=== PATIENT | male | born 2000 | race Caucasian/White ===

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

== ENCOUNTER → 2018-04-20 | Outpatient (REF) | payer OTHER, MEDICAID ==
[2018-04-20 23:51] LABS: CHLAMYDIA DNA AMPLIFICATION NEGATIVE (NEGATIVE); GC DNA AMPLIFICATION NEGATIVE (NEGATIVE)
== END ==
LOC: M LAB REF 19:05
DX: Z20.2 Contact with and (suspected) exposure to infections with a predominantly sexual mode of transmission (principal)

== ENCOUNTER 2018-05-07 17:15 | Emergency (ER) | payer OTHER, MEDICAID | END 2018-05-07 18:39 | disposition home or self-care (01) | LOC: M ED 17:15 | DX: S86.891A Other injury of other muscle(s) and tendon(s) at lower leg level, right leg, initial encounter (principal); Y93.02 Activity, running | CPT/HCPCS: 73590 ==

== ENCOUNTER 2018-05-08 13:55 | Emergency (ER) | payer OTHER | END 2018-05-08 16:00 | disposition home or self-care (01) | LOC: M ED 13:55 | DX: F41.9 Anxiety disorder, unspecified (principal); Z79.899 Other long term (current) drug therapy | CPT/HCPCS: 99283 ==

== ENCOUNTER 2018-05-08 21:11 | Emergency (ER) | payer OTHER ==
[2018-05-08] MEDS: ALPRAZolam 0.5 MG TAB PO (23:14)
== END 2018-05-08 23:18 | disposition home or self-care (01) ==
LOC: M ED 21:11
DX: F41.9 Anxiety disorder, unspecified (principal); Z79.899 Other long term (current) drug therapy
CPT/HCPCS: 99283

== ENCOUNTER 2018-06-06 22:34 | Emergency (ER) | payer OTHER ==
[2018-06-06] MEDS: LORazepam 1 MG TAB PO (23:40)
== END 2018-06-07 | disposition home or self-care (01) ==
LOC: M ED 06-07
DX: F41.1 Generalized anxiety disorder (principal)
CPT/HCPCS: 99283

== ENCOUNTER 2018-07-03 14:34 | Emergency (ER) | payer OTHER | END 2018-07-03 16:21 | disposition home or self-care (01) | LOC: M ED 14:34 | DX: M62.838 Other muscle spasm (principal); S29.012A Strain of muscle and tendon of back wall of thorax, initial encounter; X50.9XXA Other and unspecified overexertion or strenuous movements or postures, initial encounter; Y93.H1 Activity, digging, shoveling and raking; Y92.89 Other specified places as the place of occurrence of the external cause | CPT/HCPCS: 99283 ==

== ENCOUNTER 2018-07-12 17:17 | Emergency (ER) | payer OTHER | END 2018-07-12 18:29 | disposition home or self-care (01) | LOC: M ED 17:17 | DX: S86.891A Other injury of other muscle(s) and tendon(s) at lower leg level, right leg, initial encounter (principal); S86.892A Other injury of other muscle(s) and tendon(s) at lower leg level, left leg, initial encounter; X58.XXXA Exposure to other specified factors, initial encounter; Y92.39 Other specified sports and athletic area as the place of occurrence of the external cause; Y93.02 Activity, running; Y99.9 Unspecified external cause status; F41.9 Anxiety disorder, unspecified; J45.909 Unspecified asthma, uncomplicated; D55.0 Anemia due to glucose-6-phosphate dehydrogenase [G6PD] deficiency | CPT/HCPCS: 73590 ==

== ENCOUNTER 2018-08-09 18:50 | Emergency (ER) | payer OTHER ==
[~2018-08-09] VITALS: Ht 175.3 cm; Wt 68.2 kg
[~2018-08-09 18:50] MED LIST: ATIV1TAB7 PO; CYCL10TA PO; IBUP-1022 PO; KETO10TAB PO; NAPR-50 PO; VENL75TA2 PO
[2018-08-09] MEDS ORDERED: ALPRAZolam 0.25 MG TAB PO ONE (20:00)
[2018-08-09] MEDS ORDERED: HYDR-3363 PO (20:02)
[2018-08-09 20:15] VITALS: BP 120/71
== END 2018-08-09 20:16 | disposition home or self-care (01) ==
LOC: M ED 18:50
DX: F43.0 Acute stress reaction (principal); F41.1 Generalized anxiety disorder

== ENCOUNTER 2018-09-20 20:34 | Emergency (ER) | payer OTHER ==
[~2018-09-20] VITALS: Ht 175.3 cm; Wt 68.2 kg
[~2018-09-20 20:34] MED LIST changes: +HYDR-3363 PO
[2018-09-20] MEDS ORDERED: IBUP-1022 PO (22:22)
[2018-09-20 22:30] VITALS: BP 120/56
[2018-09-20] MEDS ORDERED: IBUPROFEN 600 MG TAB PO ONE (22:30)
== END 2018-09-20 22:37 | disposition home or self-care (01) ==
LOC: M ED 20:34
DX: S86.891A Other injury of other muscle(s) and tendon(s) at lower leg level, right leg, initial encounter (principal); X58.XXXA Exposure to other specified factors, initial encounter; Y92.89 Other specified places as the place of occurrence of the external cause; Y93.02 Activity, running

== ENCOUNTER 2018-10-03 21:07 | Emergency (ER) | payer OTHER ==
[~2018-10-03] VITALS: Ht 175.3 cm; Wt 68.2 kg
[2018-10-03 21:08] VITALS: BP 124/64
[2018-10-03] MEDS ORDERED: NAPR-50 PO (21:56)
[2018-10-03] MEDS ORDERED: NAPROXEN 250 MG TAB PO ONE (22:00)
== END 2018-10-03 22:04 | disposition home or self-care (01) ==
LOC: M ED 21:07
DX: M76.811 Anterior tibial syndrome, right leg (principal); M76.812 Anterior tibial syndrome, left leg; J45.909 Unspecified asthma, uncomplicated

== ENCOUNTER 2018-10-21 16:59 | Emergency (ER) | payer OTHER ==
[~2018-10-21] VITALS: Ht 175.3 cm; Wt 70.1 kg
[~2018-10-21 16:59] MED LIST changes: -NAPR-50 PO; +NAPR-837 PO
[2018-10-21 18:39] LABS: INFLUENZA A AMPLIFICATION POSITIVE (NEGATIVE); INFLUENZA B AMPLIFICATION NEGATIVE (NEGATIVE)
[2018-10-21 19:02] LABS: BLOOD UREA NITROGEN 28 MG/DL (7-18); CARBON DIOXIDE LEVEL 32 MEQ/L (21-32); CHLORIDE LEVEL 100 MEQ/L (98-107); CK-MB VALUE MASS < 1.0 NG/ML (<3.6); CPK CREATINE PHOSPHOKINASE 127 U/L (39-308); CREATININE FOR GFR 1.31 MG/DL (0.70-1.30); GLUCOSE, FASTING 78 MG/DL (70-100); MB/CK RELATIVE INDEX 0.79 (< OR =4); POTASSIUM SERUM 4.7 MEQ/L (3.5-5.1); SODIUM LEVEL 140 MEQ/L (136-145); TROPONIN I < 0.02 NG/ML (< 0.10)
[2018-10-21 19:12] LABS: BASO % 0.3 % (0.0-1.0); EOS # 0.2 10^3/uL (0.0-0.50); EOS % 3.3 % (0.0-3.0); HEMATOCRIT 49.6 % (42.0-52.0); HEMOGLOBIN 16.9 g/dl (13.5-17.5); LYMPH % 28.9 % (24.0-44.0); MEAN CORPUSCULAR HEMOGLOBIN 30.2 pg (27.0-33.0); MEAN CORPUSCULAR HGB CONC 34.1 g/dl (32.0-36.5); MEAN CORPUSCULAR VOLUME 88.7 fl (80.0-96.0); MONO # 1.4 10^3/uL (0.0-0.8); MONO % 20.5 % (0.0-5.0); NEUTROPHILS # 3.2 10^3/uL (1.8-7.7); NEUTROPHILS % 46.9 % (36.0-66.0); PLATELET COUNT, AUTOMATED 208 10^3/uL (150-450); RED BLOOD COUNT 5.59 10^6/uL (4.30-6.10); WHITE BLOOD COUNT 6.7 10^3/uL (4.0-10.0)
[2018-10-21] MEDS ORDERED: NS 1,000 ML IV ONE (19:45)
[2018-10-21 20:05] VITALS: BP 116/63
--- NOTE | 2018-10-22 09:30 | ECGEPIP ---
Stationary ECG Study [facility] - ED Test Date: 2018-10-21 Pat Name: MAIN BLACK Department: Room: - Gender: M Van Helper: [facility] : 2000 Requested By: JJ Swain PA-C Order Number: [id number] Reading MD: Yecenia Amador Measurements Intervals [place] Rate: 51 P: -7 DE: 144 QRS: 80 QRSD: 102 T: 51 QT: 364 QTc: 338 Interpretive Statements SINUS BRADYCARDIA POSSIBLE LEFT VENTRICULAR HYPERTROPHY TALL T-WAVES, HYPERKALEMIA, EARLY REPOLARIZATION, CLINICAL CORRELATION DECREASED RATE 05/06/15 Electronically Signed On 10-22-2018 9:30:22 EDT by Yecenia Amador
== END 2018-10-21 20:02 | disposition home or self-care (01) ==
LOC: M ED 16:59
DX: H92.03 Otalgia, bilateral (principal); J09.X9 Influenza due to identified novel influenza A virus with other manifestations; E86.0 Dehydration; R94.31 Abnormal electrocardiogram [ECG] [EKG]; J45.909 Unspecified asthma, uncomplicated; Z87.09 Personal history of other diseases of the respiratory system

== ENCOUNTER 2018-12-05 15:26 | Emergency (ER) | payer OTHER ==
[~2018-12-05] VITALS: Ht 177.8 cm; Wt 70.5 kg
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
[2018-12-05 18:32] VITALS: BP 107/61
--- NOTE | 2018-12-13 15:11 | REP ---
HISTORY: Chronic shoulder pain. There is no acute fracture or dislocation. The joint spaces are normal in appearance. IMPRESSION:There is no acute fracture or dislocation. Electronically Signed by Mich Pina MD 12/05/2018 06:44 P
== END 2018-12-05 18:34 | disposition home or self-care (01) ==
LOC: M ED 15:26
DX: S86.891A Other injury of other muscle(s) and tendon(s) at lower leg level, right leg, initial encounter (principal); S86.892A Other injury of other muscle(s) and tendon(s) at lower leg level, left leg, initial encounter; M25.512 Pain in left shoulder; M79.18 Myalgia, other site; X58.XXXA Exposure to other specified factors, initial encounter; Y92.89 Other specified places as the place of occurrence of the external cause; D55.0 Anemia due to glucose-6-phosphate dehydrogenase [G6PD] deficiency; M54.5 Low back pain; F41.9 Anxiety disorder, unspecified

== ENCOUNTER 2019-03-10 18:18 | Emergency (ER) | payer OTHER ==
[~2019-03-10] VITALS: Ht 175.3 cm; Wt 72.7 kg
[2019-03-10] MEDS ORDERED: KETOROLAC TROMETHAMINE 10 MG TAB PO ONE (22:15)
[2019-03-10 22:46] VITALS: BP 138/68
[2019-03-10] MEDS ORDERED: KETO10TAB PO (23:43)
[2019-03-10] MEDS ORDERED: CYCL5TAB PO (23:43)
== END 2019-03-10 23:56 | disposition home or self-care (01) ==
LOC: M ED 18:18
DX: G89.29 Other chronic pain (principal); M54.5 Low back pain; J45.909 Unspecified asthma, uncomplicated; D55.0 Anemia due to glucose-6-phosphate dehydrogenase [G6PD] deficiency

== ENCOUNTER 2019-04-07 15:06 | Emergency (ER) | payer OTHER ==
[~2019-04-07] VITALS: Ht 175.3 cm; Wt 75.4 kg
[~2019-04-07 15:06] MED LIST changes: +CYCL5TAB PO
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
[2019-04-07] MEDS ORDERED: IBUP-1022 PO (17:10)
[2019-04-07 17:15] VITALS: BP 133/66
== END 2019-04-07 17:15 | disposition home or self-care (01) ==
LOC: M ED 15:06
DX: S80.01XA Contusion of right knee, initial encounter (principal); V89.1XXA Person injured in unspecified nonmotor-vehicle accident, nontraffic, initial encounter

== ENCOUNTER 2019-08-07 18:11 | Emergency (ER) | payer OTHER ==
[~2019-08-07] VITALS: Ht 175.3 cm; Wt 68.8 kg
[2019-08-07] MEDS ORDERED: XANA0.5T PO (19:09)
[2019-08-07 20:47] LABS: AMPHETAMINES LEVEL URINE POSITIVE (NEGATIVE); BARBITURATES URINE NEGATIVE (NEGATIVE); BENZODIAZEPINES URINE NEGATIVE (NEGATIVE); CANNABINOIDS URINE NEGATIVE (NEGATIVE); COCAINE METABOLITE URINE NEGATIVE (NEGATIVE); METHADONE URINE NEGATIVE (NEGATIVE); OPIATES URINE POSITIVE (NEGATIVE); PHENCYCLIDINE URINE NEGATIVE (NEGATIVE)
[2019-08-07 21:37] LABS: BASO % 0.4 % (0.0-1.0); EOS % 0.4 % (0.0-3.0); HEMATOCRIT 46.7 % (42.0-52.0); HEMOGLOBIN 15.1 g/dl (13.5-17.5); LYMPH # 2.1 10^3/uL (1.5-5.0); LYMPH % 24.9 % (24.0-44.0); MEAN CORPUSCULAR HEMOGLOBIN 28.9 pg (27.0-33.0); MEAN CORPUSCULAR HGB CONC 32.3 g/dl (32.0-36.5); MEAN CORPUSCULAR VOLUME 89.3 fl (80.0-96.0); MONO # 0.6 10^3/uL (0.0-0.8); MONO % 7.3 % (0.0-5.0); NEUTROPHILS # 5.7 10^3/uL (1.5-8.5); NEUTROPHILS % 66.8 % (36.0-66.0); PLATELET COUNT, AUTOMATED 294 10^3/uL (150-450); RED BLOOD COUNT 5.23 10^6/uL (4.30-6.10); WHITE BLOOD COUNT 8.5 10^3/uL (4.0-10.0)
[2019-08-07 21:53] LABS: CK-MB VALUE MASS 1.6 NG/ML (<3.6); CPK CREATINE PHOSPHOKINASE 185 U/L (39-308); MB/CK RELATIVE INDEX 0.86 (< OR =4); TROPONIN I < 0.02 NG/ML (< 0.10)
[2019-08-07 21:59] VITALS: BP 125/74
--- NOTE | 2019-08-14 10:13 | ECGEPIP ---
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
== END 2019-08-07 22:22 | disposition home or self-care (01) ==
LOC: M ED 18:11
DX: F11.10 Opioid abuse, uncomplicated (principal); F15.90 Other stimulant use, unspecified, uncomplicated

== ENCOUNTER 2020-08-03 15:28 | Emergency (ER) | payer OTHER ==
[~2020-08-03] VITALS: Ht 177.8 cm; Wt 75.0 kg
[~2020-08-03 15:28] MED LIST changes: +CYCL-707 PO; -CYCL10TA PO; +XANA0.5T PO
[2020-08-03 15:37] VITALS: BP 156/106
[2020-08-03 16:04] LABS: HEMATOCRIT 44.5 % (42.0-52.0); HEMOGLOBIN 14.6 g/dl (13.5-17.5); MEAN CORPUSCULAR HGB CONC 32.8 g/dl (32.0-36.5); MEAN CORPUSCULAR VOLUME 88.3 fl (80.0-96.0); PLATELET COUNT, AUTOMATED 227 10^3/uL (150-450); RED BLOOD COUNT 5.04 10^6/uL (4.30-6.10); WHITE BLOOD COUNT 7.9 10^3/uL (4.0-10.0)
[2020-08-03 16:42] LABS: ACETAMINOPHEN LEVEL < 2.0 UG/ML (10.0-30.0); ALBUMIN 4.8 GM/DL (3.2-5.2); ALT/SGPT 30 U/L (12-78); BILIRUBIN,DIRECT 0.1 MG/DL (0.0-0.2); BILIRUBIN,TOTAL 0.6 MG/DL (0.2-1.0); BLOOD UREA NITROGEN 17 MG/DL (7-18); CALCIUM LEVEL 9.1 MG/DL (8.5-10.1); CARBON DIOXIDE LEVEL 29 MEQ/L (21-32); CHLORIDE LEVEL 105 MEQ/L (98-107); CREATININE FOR GFR 1.05 MG/DL (0.70-1.30); ETHYL ALCOHOL (ETHANOL) < 0.003 % (0.000-0.010); GLOMERULAR FILTRATION RATE > 60.0 (>60); GLUCOSE, FASTING 67 MG/DL (70-100); POTASSIUM SERUM 4.3 MEQ/L (3.5-5.1); SALICYLATE LEVEL < 1.7 MG/DL (5.0-30.0); SODIUM LEVEL 139 MEQ/L (136-145); TOTAL PROTEIN 7.6 GM/DL (6.4-8.2)
== END 2020-08-03 17:02 | disposition home or self-care (01) ==
LOC: M ED 15:28
DX: F43.0 Acute stress reaction (principal); F99 Mental disorder, not otherwise specified; D55.0 Anemia due to glucose-6-phosphate dehydrogenase [G6PD] deficiency; F17.200 Nicotine dependence, unspecified, uncomplicated; Z79.899 Other long term (current) drug therapy
CPT/HCPCS: 36415; 80048; 80076; 84443; 85027; 99284; G0480

== ENCOUNTER 2020-08-29 14:08 | Emergency (ER) | payer OTHER ==
[~2020-08-29] VITALS: Ht 177.8 cm; Wt 79.1 kg
[~2020-08-29 14:08] MED LIST changes: +cloNIDine HCL 0.3 MG/24 HR PATCH TOP SCH
[2020-08-29 14:09] VITALS: BP 118/70
--- OUTSIDE RECORDS SUMMARY | 2020-08-29 14:26 | CCD ---
Author Author [facility] Address Unknown Phone Unavailable Care Team Providers Care Percher Name Role Phone Rose Ng MD Unavailable Unavailable Rose Ng MD Unavailable Unavailable Rose Ng MD Unavailable Unavailable Rose Ng MD Unavailable Unavailable Rose Ng MD Unavailable Unavailable Rose Ng MD Unavailable Unavailable Rose Ng MD Unavailable Unavailable Rose Ng MD Unavailable Unavailable Rose Ng MD Unavailable Unavailable Rose Ng MD Unavailable Unavailable Rose Ng MD Unavailable Unavailable Rose Ng MD Unavailable Unavailable Rose Ng MD Unavailable Unavailable Rose Ng MD Unavailable Unavailable Rose Ng MD Unavailable Unavailable Rose Ng MD Unavailable Unavailable Rose Ng MD Unavailable Unavailable Rose Ng MD Unavailable Unavailable Rose Ng MD Unavailable Unavailable Rose Ng MD Unavailable Unavailable Rose Ng MD Unavailable Unavailable Rose Ng MD Unavailable Unavailable Rose Ng MD Unavailable Unavailable Rose Ng MD Unavailable Unavailable Rose Ng MD Unavailable Unavailable Rose Ng MD Unavailable Unavailable Rose Ng MD Unavailable Unavailable Rose Ng MD Unavailable Unavailable Rose Ng MD Unavailable Unavailable Gn, oRse Moe MD Unavailable Unavailable Ng, Rose Moe MD Unavailable Unavailable Ng, Rose Moe MD Unavailable Unavailable Ng, Rose Moe MD Unavailable Unavailable Ng, Rose Moe MD Unavailable Unavailable Ng, Rose Moe MD Unavailable Unavailable Ng, Rose Moe MD Unavailable Unavailable Ng, Rose Moe MD Unavailable Unavailable Ng, Rose Moe MD Unavailable Unavailable Ng, Rose Moe MD Unavailable Unavailable Ng, Rose Moe MD Unavailable Unavailable Ng, Rose Moe MD Unavailable Unavailable Ng, Rose Moe MD Unavailable Unavailable Ng, Rose Moe MD Unavailable Unavailable Ng, Rose Moe MD Unavailable Unavailable Ng, Rose Moe MD Unavailable Unavailable Ng, Rose Moe MD Unavailable Unavailable Ng, Rose Moe MD Unavailable Unavailable Ng, Rose Moe MD Unavailable Unavailable Ng, Rose Moe MD Unavailable Unavailable Ng, Rose Moe MD Unavailable Unavailable Ng, Rose Moe MD Unavailable Unavailable Ng, Rose Moe MD Unavailable Unavailable Ng, Rose Moe MD Unavailable Unavailable Ng, Rose Moe MD Unavailable Unavailable Ng, Rose Moe MD Unavailable Unavailable Ng, Rose Moe MD Unavailable Unavailable Ng, Rose Moe MD Unavailable Unavailable Ng, Rose Moe MD Unavailable Unavailable Ng, Rose Moe MD Unavailable Unavailable Ng, Rose Moe MD Unavailable Unavailable Ng, Rose Moe MD Unavailable Unavailable NgRose MD Unavailable Unavailable Ng, Rose Moe MD Unavailable Unavailable Gn, Rose Moe MD Unavailable Unavailable NgRose MD Unavailable Unavailable Ng, Rose Moe MD Unavailable Unavailable Ng, Rose Moe MD Unavailable Unavailable Ng, Rose Moe MD Unavailable Unavailable Ng, Rose Moe MD Unavailable Unavailable Ng, Rose Moe MD Unavailable Unavailable Ng, Rose Moe MD Unavailable Unavailable Ng, Rose Moe MD Unavailable Unavailable Ng, Rose Moe MD Unavailable Unavailable NgRose MD Unavailable Unavailable NgRose MD Unavailable Unavailable NgRose MD Unavailable Unavailable NgRose MD Unavailable Unavailable Ng, Rose Moe MD Unavailable Unavailable Ng, Rose Moe MD Unavailable Unavailable NgRose MD Unavailable Unavailable NgRose MD Unavailable Unavailable NgRose MD Unavailable Unavailable NgRose MD Unavailable Unavailable Rose Ng MD Unavailable Unavailable NgRose MD Unavailable Unavailable NgRose MD Unavailable Unavailable NgRose MD Unavailable Unavailable NgRose MD Unavailable Unavailable NgRose MD Unavailable Unavailable Re-disclosure Warning The records that you are about to access may contain information from federally-assisted alcohol or drug abuse programs. If such information is present, then the following federally mandated warning applies: This information has been disclosed to you from records protected by federal confidentiality rules (42 CFR part 2). The federal rules prohibit you from making any further disclosure of this information unless further disclosure is expressly permitted by the written consent of the person to whom it pertains or as otherwise permitted by 42 CFR part 2. A general authorization for the release of medical or other information is NOT sufficient for this purpose. The Federal rules restrict any use of the information to criminally investigate or prosecute any alcohol or drug abuse patient.The records that you are about to access may contain highly sensitive health information, the redisclosure of which is protected by Article 27-F of the [facility] Public Health law. If you continue you may have access to information: Regarding HIV / AIDS; Provided by facilities licensed or operated by the [facility] Office of Mental Health; or Provided by the [facility] Office for People With Developmental Disabilities. If such information is present, then the following [facility] mandated warning applies: This information has been disclosed to you from confidential records which are protected by state law. State law prohibits you from making any further disclosure of this information without the specific written consent of the person to whom it pertains, or as otherwise permitted by law. Any unauthorized further disclosure in violation of state law may result in a fine or group home sentence or both. A general authorization for the release of medical or other information is NOT sufficient authorization for further disc losure. Family History Family Member Name Family Member Gender Family Member Status Date o f Status Description Data Source(s) Unknown Male Problem [facility] ([facility]) Encounters Encounter Providers Location Date Indications Data Source(s ) Outpatient Attender: Abhi Ng MD FP 08/09/2019 08:52:01 AM [facility] Outpatient Attender: Abhi Ng MD FP 07/24/2019 09:01:14 PM [facility] Family Health Insurance Providers Payer name Policy type / Coverage type Policy ID Covered green party ID Covered green party's relationship to quintero Policy Qu[employer] Plan Information [employer] COMMUNITY PLAN MCDHMO [id number] SP [id number] Managed Care - [facility] Community Plan P [id number] S [id number] Medicaid S [id number] S [id number] [facility]) O [id number] S [id number] [facility] Community Plan Commercial [id number] Self [id number] Managed Care - Community Plan [employer] P [id number] S [id number] Managed Care - Community Plan United Healthcare P [id number] S [id number] UNHC COMMUNITY PLAN XIX -RECURRING [id number] 18 [id number] [facility] COMMUNITY PLAN [facility] [id number] SP [id number] MEDICAID [id number] SP [id number] Medicaid S [id number] S [id number] Self Pay P UNAVAILABLE S UNAVAILA BLE SELF PAY ONLY UNAVAILABLE SP UNAV AILABLE [facility] COMMUNITY PLAN [facility] [id number] SP [id number] [facility] COMMUNITY PLAN [facility] [id number] SP [id number] [facility] COMMUNITY PLAN [facility] [id number] SP [id number] [facility] PLAN [facility] [id number] SP [id number] [facility](MCAID) O [id number] S [id number] [facility]) O [id number] S [id number] [facility] AMERICHOICE XIX -HMO [id number] 18 [id number] MEDICAID - CLINIC [id number] [employer] [id number]
--- OUTSIDE RECORDS SUMMARY | 2020-08-29 15:11 | CCD ---
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 If you continue you may have access to information: Regarding HIV / AIDS; Provided by facilities licensed or operated by the [facility] Office of Mental Health; or Provided by the [facility] Office for People With Developmental Disabilities. If such information is present, then the following [facility] mandated warning applies: This information has [...] law may result in a fine or penitentiary sentence or both. A general authorization for the release of medical or other information is NOT sufficient authorization for further disc losure. Family History Family Member Name Family Member Gender Family Member Status Date o f Status Description Data Source(s) Unknown Male Problem [facility] ([facility]) Encounters Encounter Providers Location Date Indications Data Source(s ) Outpatient Attender: Abhi Ng MD FP 08/09/2019 08:52:01 AM [facility] Outpatient Attender: Abhi Ng MD FP 07/24/2019 09:01:14 PM [facility] Family Health Insurance Providers Payer name Policy type / Coverage type Policy ID Covered constitution party ID Covered constitution party's relationship to quintero Policy Quintero Plan Information [employer] COMMUNITY PLAN [id number] SP [id number] Managed Care - [facility] Community Plan P [id number] S [id number] Medicaid S [id number] S [id number] [facility] O [id number] S [id number] [facility] Community Plan Commercial [id number] Self [id number] Managed Care - Community Plan United [employer] P [id number] S [id number] Managed Care - Community Plan United Healthcare P [id number] S [id number] [employer] COMMUNITY PLAN XIX -RECURRING [id number] 18 [id number] [facility] COMMUNITY PLAN [facility] [id number] SP [id number] MEDICAID [id number] SP [id number] Medicaid S [id number] S [id number] Self Pay P UNAVAILABLE S UNAVAILA BLE SELF PAY ONLY UNAVAILABLE SP UNAV AILABLE [facility] COMMUNITY PLAN [facility] [id number] SP [id number] [facility] COMMUNITY PLAN [facility] [id number] SP [id number] [facility] COMMUNITY PLAN [facility] [id number] SP [id number] IRA [facility] PLAN [facility] [id number] SP [id number] [facility] O [id number] S [id number] [facility]) O [id number] S [id number] [facility] AMERICHOICE XIX -HMO [id number] 18 [id number] MEDICAID - CLINIC [id number] [employer] [id number] FA2 [id number]
[2020-08-29] MEDS ORDERED: METOCLOPRAMIDE INJ 10MG/2ML VIAL (J2765 PER 1) IV ONE (16:45)
[2020-08-29] MEDS ORDERED: KETOROLAC 30 MG/ML 1ML VIAL IV ONE (16:45)
[2020-08-29] MEDS ORDERED: NS 1,000 ML IV ONE (16:45)
[2020-08-29 17:08] LABS: BASO % 0.3 % (0.0-1.0); EOS % 0.1 % (0.0-3.0); HEMATOCRIT 46.5 % (42.0-52.0); HEMOGLOBIN 15.2 g/dl (13.5-17.5); LYMPH # 1.4 10^3/uL (1.5-5.0); LYMPH % 19.8 % (24.0-44.0); MEAN CORPUSCULAR HEMOGLOBIN 29.1 pg (27.0-33.0); MEAN CORPUSCULAR HGB CONC 32.7 g/dl (32.0-36.5); MEAN CORPUSCULAR VOLUME 89.1 fl (80.0-96.0); MONO # 0.5 10^3/uL (0.0-0.8); MONO % 6.5 % (0.0-5.0); PLATELET COUNT, AUTOMATED 245 10^3/uL (150-450); RED BLOOD COUNT 5.22 10^6/uL (4.30-6.10); WHITE BLOOD COUNT 6.9 10^3/uL (4.0-10.0)
[2020-08-29 17:33] LABS: BLOOD UREA NITROGEN 6 MG/DL (7-18); CALCIUM LEVEL 10.1 MG/DL (8.5-10.1); CARBON DIOXIDE LEVEL 31 MEQ/L (21-32); CHLORIDE LEVEL 106 MEQ/L (98-107); CREATININE FOR GFR 0.78 MG/DL (0.70-1.30); GLOMERULAR FILTRATION RATE > 60.0 (>60); GLUCOSE, FASTING 94 MG/DL (70-100); POTASSIUM SERUM 5.2 MEQ/L (3.5-5.1); SODIUM LEVEL 141 MEQ/L (136-145)
== END 2020-08-29 19:49 | disposition home or self-care (01) ==
LOC: M ED 14:08
DX: Z53.20 Procedure and treatment not carried out because of patient's decision for unspecified reasons (principal); J45.909 Unspecified asthma, uncomplicated; F12.10 Cannabis abuse, uncomplicated
CPT/HCPCS: 80048; 85025; 96374; 96375; 99283; J1885; J2765

== ENCOUNTER 2021-02-20 06:16 | Inpatient (IN) | payer OTHER ==
[2021-02-20] VITALS (14 sets, daily range): BP systolic 114–184; BP diastolic 62–104
[~2021-02-20] VITALS: Ht 172.7 cm; Wt 72.9 kg
[~2021-02-20 06:16] MED LIST changes: -cloNIDine HCL 0.3 MG/24 HR PATCH TOP SCH
[2021-02-20] MEDS ORDERED: LORazepam 2 MG/ML VIAL IV STA ×2 (06:24→14:05)
[2021-02-20] MEDS ORDERED: NS 1,000 ML IV ONE ×2 (06:25→12:25)
[2021-02-20] MEDS ORDERED: LORazepam 2 MG/ML VIAL As Ordered ONE (06:31)
[2021-02-20 06:43] LABS: BASO % 0.2 % (0.0-1.0); EOS % 0.3 % (0.0-3.0); HEMATOCRIT 49.3 % (42.0-52.0); HEMOGLOBIN 16.6 g/dl (13.5-17.5); LYMPH # 2.1 10^3/uL (1.5-5.0); LYMPH % 23.5 % (24.0-44.0); MEAN CORPUSCULAR HEMOGLOBIN 29.4 pg (27.0-33.0); MEAN CORPUSCULAR HGB CONC 33.7 g/dl (32.0-36.5); MEAN CORPUSCULAR VOLUME 87.4 fl (80.0-96.0); MONO # 0.8 10^3/uL (0.0-0.8); MONO % 8.7 % (2.0-8.0); NEUTROPHILS % 67.1 % (36.0-66.0); PLATELET COUNT, AUTOMATED 276 10^3/uL (150-450); RED BLOOD COUNT 5.64 10^6/uL (4.30-6.10); WHITE BLOOD COUNT 8.9 10^3/uL (4.0-10.0)
[2021-02-20 07:08] LABS: OSMOLALITY SERUM 292 MOSM/KG (275-295)
[2021-02-20 07:22] LABS: ACETAMINOPHEN LEVEL < 2.0 UG/ML (10.0-30.0); ALBUMIN 5.2 GM/DL (3.2-5.2); ALT/SGPT 39 U/L (12-78); AMPHETAMINES LEVEL URINE NEGATIVE (NEGATIVE); BARBITURATES URINE NEGATIVE (NEGATIVE); BENZODIAZEPINES URINE NEGATIVE (NEGATIVE); BILIRUBIN,DIRECT 0.1 MG/DL (0.0-0.2); BILIRUBIN,TOTAL 0.8 MG/DL (0.2-1.0); BLOOD UREA NITROGEN 18 MG/DL (7-18); CALCIUM LEVEL 9.8 MG/DL (8.5-10.1); CANNABINOIDS URINE POSITIVE (NEGATIVE); CARBON DIOXIDE LEVEL 22 MEQ/L (21-32); CHLORIDE LEVEL 105 MEQ/L (98-107); CK-MB VALUE MASS 2.2 NG/ML (<3.6); COCAINE METABOLITE URINE NEGATIVE (NEGATIVE); CPK CREATINE PHOSPHOKINASE 253 U/L (39-308); CREATININE FOR GFR 1.34 MG/DL (0.70-1.30); ETHYL ALCOHOL (ETHANOL) < 0.003 % (0.000-0.010); GLOMERULAR FILTRATION RATE > 60.0 (>60); GLUCOSE, FASTING 100 MG/DL (70-100); MB/CK RELATIVE INDEX 0.87 (< OR =4); METHADONE URINE NEGATIVE (NEGATIVE); OPIATES URINE POSITIVE (NEGATIVE); PHENCYCLIDINE URINE NEGATIVE (NEGATIVE); SALICYLATE LEVEL < 1.7 MG/DL (5.0-30.0); SODIUM LEVEL 138 MEQ/L (136-145); TOTAL PROTEIN 8.5 GM/DL (6.4-8.2); TROPONIN I < 0.02 NG/ML (< 0.10)
--- NOTE | 2021-02-20 07:59 | ECGEPIP ---
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
--- NOTE | 2021-02-20 09:28 | REP ---
INDICATION: altered mental status. COMPARISON: MRI BRAIN 10/14/2005 TECHNIQUE: CT BRAIN PERFORMED IN THE AXIAL PLANE. CORONAL RECONSTRUCTION IMAGES ARE PERFORMED. FINDINGS: THE VENTRICLES ARE NORMAL IN SIZE AND POSITION. THERE IS NO MIDLINE SHIFT OR MASS EFFECT. GRAVES-WHITE DIFFERENTIATION IS WELL MAINTAINED. THERE IS NO ACUTE INTRACRANIAL HEMORRHAGE, MASS, MASS EFFECT OR EXTRA-AXIAL FLUID COLLECTION. BONE WINDOW EXAMINATION IS UNREMARKABLE. VISUALIZED MASTOID AIR CELLS AND PARANASAL SINUSES ARE CLEAR. IMPRESSION: NEGATIVE NONCONTRAST CT BRAIN. <Electronically signed by Laron Connell > 02/20/21 0924
[2021-02-20] MEDS ORDERED: HALOPERIDOL 5MG/ML VIAL (J1630 PER 1) As Ordered ONE (12:13)
[2021-02-20] MEDS ORDERED: diphenhydrAMINE 50MG/ML VIAL (J1200) As Ordered ONE (12:13)
[2021-02-20] MEDS ORDERED: LORazepam 2 MG/ML VIAL IM ONE (12:15)
[2021-02-20] MEDS ORDERED: diphenhydrAMINE 50MG/ML VIAL (J1200) IM ONE (12:15)
[2021-02-20] MEDS ORDERED: HALOPERIDOL 5MG/ML VIAL (J1630 PER 1) IM ONE (12:15)
[2021-02-20] MEDS ORDERED: LORazepam 2 MG/ML VIAL IV PRN ×3 (14:40→20:30)
[2021-02-20] MEDS ORDERED: ACETAMINOPHEN TAB 650MG DOSE (2X325MG) PO PRN (14:40)
[2021-02-20] MEDS ORDERED: HALOPERIDOL 5MG/ML VIAL (J1630 PER 1) IV PRN (14:50)
[2021-02-20 15:02] LABS: RSV AMPLIFICATION NEGATIVE (NEGATIVE)
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
[2021-02-20] MEDS: LR 1,000 ML IV SCH ×2 (15:21→23:33)
[2021-02-20 15:38] LABS: BASO % 0.2 % (0.0-1.0); EOS % 0.1 % (0.0-3.0); HEMATOCRIT 44.5 % (42.0-52.0); HEMOGLOBIN 15.2 g/dl (13.5-17.5); LYMPH # 2.4 10^3/uL (1.5-5.0); LYMPH % 14.1 % (24.0-44.0); MEAN CORPUSCULAR HEMOGLOBIN 29.6 pg (27.0-33.0); MEAN CORPUSCULAR HGB CONC 34.2 g/dl (32.0-36.5); MEAN CORPUSCULAR VOLUME 86.6 fl (80.0-96.0); MONO # 1.6 10^3/uL (0.0-0.8); MONO % 9.3 % (2.0-8.0); NEUTROPHILS # 12.7 10^3/uL (1.5-8.5); NEUTROPHILS % 75.9 % (36.0-66.0); RED BLOOD COUNT 5.14 10^6/uL (4.30-6.10); WHITE BLOOD COUNT 16.7 10^3/uL (4.0-10.0)
[2021-02-20 16:06] LABS: BLOOD UREA NITROGEN 14 MG/DL (7-18); CALCIUM LEVEL 8.8 MG/DL (8.5-10.1); CARBON DIOXIDE LEVEL 22 MEQ/L (21-32); CHLORIDE LEVEL 113 MEQ/L (98-107); CREATININE FOR GFR 1.18 MG/DL (0.70-1.30); GLOMERULAR FILTRATION RATE > 60.0 (>60); GLUCOSE, FASTING 81 MG/DL (70-100); MAGNESIUM LEVEL 2.4 MG/DL (1.8-2.4); PHOSPHORUS LEVEL 2.2 MG/DL (2.5-4.9); POTASSIUM SERUM 4.8 MEQ/L (3.5-5.1); SODIUM LEVEL 141 MEQ/L (136-145)
[2021-02-20] MEDS: LORazepam 2 MG/ML VIAL IV PRN ×3 (16:50→19:08)
[2021-02-20 16:51] LABS: PLATELET COUNT, AUTOMATED 176 10^3/uL (150-450)
[2021-02-20] MEDS: HALOPERIDOL 5MG/ML VIAL (J1630 PER 1) IV PRN ×2 (17:50→23:33)
--- NOTE | 2021-02-20 19:31 | REP ---
INDICATION: elevated WBC, ?infection. COMPARISON: Comparison chest x-ray May 09, 2015. TECHNIQUE: Portable upright AP chest radiograph. FINDINGS: The lungs are well inflated and free of infiltrate. Pleural angles are sharp. Heart size is normal. Pulmonary vasculature is not increased. Monitoring electrodes are present. IMPRESSION: No active disease. <Electronically signed by Manuel Moise > 02/20/21 3640
[2021-02-20] MEDS ORDERED: dexmedeTOMidine 200 MCG in IV 1 EA IV SCH ×2 (21:00→23:35)
[2021-02-20] MEDS: HEPARIN SOD (PORCINE) 5000UNITS/ML 1ML VIAL/SYRINGE SC SCH (23:33)
[2021-02-21] VITALS (27 sets, daily range): BP systolic 117–187; BP diastolic 55–82
--- NOTE | 2021-02-21 00:44 | IPNPDOC ---
Text Note Date of Service The patient was seen on 02/21/21. NOTE Restraint certification Patient sent up to the ICU from the emergency department in restraints patient was assessed after 4 hours and unfortunately continues to need both chemical and mechanical restraints. FACE TO FACE: yes PHYSICIAN ASSESSMENT: The patient was agitated, violent towards staff and not following verbal instructions VITALS GEN: irritable / yelling CVS: tachycardic LUNGS: CTAB on RA REASON FOR RESTRAINT: The patient was a danger to the staff and possibly to himself. DE-ESCALATION INTERVENTIONS ATTEMPTED BEFORE USE OF RESTRAINTS: verbal redirection, education [MECHANICAL AND/OR CHEMICAL] RESTRAINTS USED: Both LENGTH OF TIME ORDERED IN RESTRAINTS: 4 hours WHEN TO DISCONTINUE RESTRAINTS: When the patient is no longer a threat to to herself or others VS,Frandy, I+O VS, Frandy, I+O Laboratory Tests 02/20/21 06:24 02/20/21 15:24 Vital Signs Date Time Temp Pulse Resp B/P (MAP) Pulse Ox O2 Delivery O2 Flow Rate FiO2 02/21/21 00:30 58 129/61 (83) 95 Room Air 02/21/21 00:00 99.3 30 I&O- Last 24 Hours up to 6 AM 02/21/21 06:00 Intake Total 2960 ml Output Total 2450 ml Balance 510 ml ANN BERNAL MD Feb 21, 2021 00:44
--- NOTE | 2021-02-21 04:27 | ECGEPIP ---
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
[2021-02-21 05:33] LABS: BLOOD UREA NITROGEN 16 MG/DL (7-18); CALCIUM LEVEL 8.8 MG/DL (8.5-10.1); CARBON DIOXIDE LEVEL 24 MEQ/L (21-32); CHLORIDE LEVEL 114 MEQ/L (98-107); CREATININE FOR GFR 0.93 MG/DL (0.70-1.30); GLOMERULAR FILTRATION RATE > 60.0 (>60); GLUCOSE, FASTING 66 MG/DL (70-100); MAGNESIUM LEVEL 2.4 MG/DL (1.8-2.4); POTASSIUM SERUM 4.4 MEQ/L (3.5-5.1); SODIUM LEVEL 145 MEQ/L (136-145)
[2021-02-21] MEDS: HEPARIN SOD (PORCINE) 5000UNITS/ML 1ML VIAL/SYRINGE SC SCH ×3 (06:00→22:00)
[2021-02-21 07:41] LABS: BASO % 0.3 % (0.0-1.0); EOS # 0.1 10^3/uL (0.0-0.5); EOS % 0.6 % (0.0-3.0); HEMATOCRIT 45.5 % (42.0-52.0); HEMOGLOBIN 15.1 g/dl (13.5-17.5); LYMPH # 2.3 10^3/uL (1.5-5.0); MEAN CORPUSCULAR HEMOGLOBIN 29.2 pg (27.0-33.0); MEAN CORPUSCULAR HGB CONC 33.2 g/dl (32.0-36.5); MONO # 1.1 10^3/uL (0.0-0.8); MONO % 9.8 % (2.0-8.0); NEUTROPHILS # 7.3 10^3/uL (1.5-8.5); PLATELET COUNT, AUTOMATED 229 10^3/uL (150-450); RED BLOOD COUNT 5.17 10^6/uL (4.30-6.10); WHITE BLOOD COUNT 10.7 10^3/uL (4.0-10.0)
[2021-02-21 07:45] LABS: ALBUMIN 4.3 GM/DL (3.2-5.2); ALT/SGPT 44 U/L (12-78); BILIRUBIN,TOTAL 1.7 MG/DL (0.2-1.0); PHOSPHORUS LEVEL 3.6 MG/DL (2.5-4.9); TOTAL PROTEIN 6.9 GM/DL (6.4-8.2)
[2021-02-21] MEDS ORDERED: THIAMINE 100 MG TAB PO SCH (09:00)
[2021-02-21] MEDS ORDERED: FOLIC ACID 1 MG TAB PO SCH (09:00)
[2021-02-21] MEDS ORDERED: MULTIVITAMINS/MINERALS THERAP 1 TAB PO SCH (09:00)
--- NOTE | 2021-02-21 18:56 | IPNPDOC ---
Text Note Date of Service The patient was seen on 02/21/21. NOTE SUBJECTIVE: Patient was seen and examined this morning at bedside. He states he does not remember what brought him into the hospital. He admits to marijuana use but denies use of other illicit substances or IV substances. He denies any current complaints. He is able to converse with me and responds appropriately to questions. He still does seem slightly anxious. OBJECTIVE: VITAL SIGNS: Please see below. GENERAL: Alert, comfortable, in no acute distress HEENT: Normocephalic, atraumatic, PERRLA, EOMI, moist mucous membranes NECK: Supple, trachea midline, no lymphadenopathy CARDIOVASCULAR: Regular rate and rhythm, normal S1 and S2. No murmurs, rubs, or gallops RESPIRATORY: Clear to auscultation bilaterally with equal air entry bilaterally. No wheezing, rhonchi, or rales. ABDOMEN: Soft, nontender, nondistended, bowel sounds present, no masses or hepatosplenomegaly appreciated EXTREMITIES: No cyanosis or edema. Pulses 2+/4 in bilateral upper and lower extremities SKIN: [place], warm, dry. Some scratch crespo over bilateral shins without any signs of infection. NEUROLOGIC: Follows commands. No focal deficits appreciated. ASSESSMENT/PLAN: 20-year-old male with history of anxiety presented to the ED with altered mental status likely related to substance abuse versus psychosis requiring chemical and physical restraints, admitted to the hospital for persistent tachycardia. #Tachycardia likely secondary to agitation and substance abuse, resolved Status post Precedex drip and IV fluids Monitor on telemetry # Elevated WBC with lactic acidosis, resolved Likely due to his agitation in the ER Status post IV fluids No evidence for current infection, blood cultures x2 pending #Anxiety and agitation secondary to psychosis versus substance abuse, improved today Status post Precedex drip and physical restraints As needed Ativan and Haldol available as needed for agitation. #Elevated creatinine, resolved Status post IV fluids likely due to dehydration #Altered mental status secondary to substance abuse versus psychosis UDS positive for cannabis and opiates Psychiatry consulted, appreciate recommendations for further management Unknown if he is an alcoholic, started on multivitamin, folic acid, and thiamine. DVT prophylaxis: Subcutaneous heparin Disposition: Pending psychiatric evaluation possible admission to [facility] you versus discharge home with outpatient psychiatric follow-up Addendum: Patient was evaluated by psychiatrist Dr. Estrada and felt to be a good candidate for [facility] admission. Patient was discharged the same day and transferred to [facility]. Please see discharge summary. VS,Fishbone, I+O VS, Fishbone, I+O Laboratory Tests 02/21/21 04:54 Vital Signs Date Time Temp Pulse Resp B/P (MAP) Pulse Ox O2 Delivery O2 Flow Rate FiO2 02/21/21 14:41 98.8 86 16 139/76 (97) 97 Room Air I&O- Last 24 Hours up to 6 AM 02/21/21 06:00 Intake Total 2960 ml Output Total 3600 ml Balance -640 ml BULMARO YODER D.O. Feb 21, 2021 18:56
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
== END 2021-02-21 23:20 | DRG 201 ==
LOC: M ED 06:16 → M ED INP 15:06 → ENRESERV 15:30 → M ICU 20:33
PROVIDERS: ADMIT Internal Medicine; ATTEND Internal Medicine
DX: R00.0 Tachycardia, unspecified (principal); E87.2 Acidosis; Z78.1 Physical restraint status; F41.9 Anxiety disorder, unspecified; R25.1 Tremor, unspecified; F12.10 Cannabis abuse, uncomplicated; R45.1 Restlessness and agitation; F29 Unspecified psychosis not due to a substance or known physiological condition; F11.10 Opioid abuse, uncomplicated

== ENCOUNTER 2021-02-21 22:18 | Inpatient (IN) | payer MEDICAID, OTHER ==
[~2021-02-21 22:18] MED LIST changes: +OLANZapine 5 MG TAB PO SCH
[2021-02-21] MEDS ORDERED: OLANZapine ORAL DISINTEGRATING TAB 5MG PO PRN (22:55)
[2021-02-21] MEDS ORDERED: MOM 30ML SUSPENSION UDC PO PRN (22:55)
[2021-02-21] MEDS ORDERED: ACETAMINOPHEN TAB 650MG DOSE (2X325MG) PO PRN (22:55)
[2021-02-21] MEDS ORDERED: MAALOX 30 ML SUSP *UDC PO PRN (22:55)
[2021-02-21 23:20] VITALS: BP 153/90
--- NOTE | 2021-02-22 10:19 | HPEPDOC ---
[facility] Medical History & Physical Date of Admission Feb 21, 2021 Date of Service: Feb 22, 2021 History and Physical Chief complaint: Presented to ER with psychosis / paranoid thoughts, was admitted to medicine for tachycardia; now transitioned to [facility] History of present illness: Patient is a 20-year-old male with a past medical history of Anxiety , who presented to the emergency room on 02/20/2021 after his found roaming and experiencing paranoid thoughts. Patient is is PS3 over the bridge because he had reported that it was controlling his mind. Patient was originally admitted to the medical service for evaluation of tachycardia, which has now resolved. Patient has been transitioned inpatient mental health unit under the care of psychiatry. Hospitalist service was consulted for medical screening evaluation. Patient was seen and examined. Currently, he denies any chest pain, sharp s pelled palpitations, nausea, vomiting, abdominal pain or diarrhea. Denies any urinary discomfort, any recent fevers or chills. Reports appetite is fairly normal. Denies any changes in his weight. Past Medical History: Reported anxiety Past Surgical History: Denies Allergies: See below Medications: See below Family History: - Mother and father with a history of anxiety and depression Social History: - Reports occasional alcohol use. Denies smoking cigarettes reports the use of marijuana and opiates - Denies recent travel or sick contacts - Lives with parents Review of Systems: 10 point review of systems complete, all negative otherwise stated in HPI Physical exam: - Vitals: BP [153/90], HR [73], RR [16], Sat [98%RA], Temp [97.7F] - General: Lying in bed, Speaking in full sentences, AAOx3 - HEENT: NC, AT, PERRLA - CVS: RRR, +S1S2 - Lungs: Fair air entry bilaterally, No appreciable wheezing / rales / rhonchi - Abdomen: Soft, Non-distended, Non-tender - Extremities: No lower extremity edema, No calf tenderness - Neuro: No focal motor or sensory deficit - Skin: No visible rashes Labs: See below Imaging: See below EKG: See below Assessment and Plan: Anxiety / Agitation - Patient has been admitted to the inpatient mental health unit under the care of psychiatry - s/p Ativan and Precedex drip while inpatient - Currently being managed by psychiatry s/p Tachycardia - Likely 2/2 agitation Leukocytosis - likely 2/2 reactive etiology, less likely 2/2 infectious etiology - ROS negative - Hemodynamically stable and afebrile - No indication for antibiotics at this time s/p Elevated Cr s/p Acute toxic encephalopathy - likely 2/2 substance abuse DVT prophylaxis - Will continue with early ambulation Female city planner was present at the duration of this history and physical examination Thank you for this consultation. Hospitalist service will now sign off, please reconsult as needed. Vital Signs Vital Signs Date Time Temp Pulse Resp B/P (MAP) Pulse Ox O2 Delivery O2 Flow Rate FiO2 02/22/21 09:39 Room Air 02/21/21 23:20 97.7 73 16 153/90 (111) 98 Home Medications No Active Prescriptions or Reported Meds Allergies Coded Allergies: No Known Allergies (Verified , 09/20/18) DIDI MENEZES MD Feb 22, 2021 10:19
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
[2021-02-22] MEDS: risperiDONE 2 MG TAB PO SCH (20:48)
[2021-02-23 06:45] VITALS: BP 140/90
[2021-02-23 08:24] LABS: CHOLESTEROL RISK RATIO 5.088 (<5)
[2021-02-23] MEDS: risperiDONE 2 MG TAB PO SCH ×2 (09:24→21:29)
--- NOTE | 2021-02-23 14:08 | MHIPNPDOC ---
[facility] Progress Note Progress Note DATE OF SERVICE: 02/23/21 HISTORY: 20 year old male,who was admitted for psychosis. He says he is sleeping well, his appetite is good, he says he feels improved, he says he remembers his heart was pounding and how he left his house and he says he told his mother to call someone because he felt very anxious and he needed to come to the Hospital to be checked. This is not what the original story says, regarding to the events that day, please refer to previous documents. He denies feeling depressed, denies feeling anxious, denies feeling paranoid, denies auditory and visual hallucinations. VITAL SIGNS: See below. NEW TEST RESULTS: See below CURRENT MEDICATIONS: See below. MENTAL STATUS EXAMINATION: General Appearance: well groomed, appears stated age, hospital scrubs/clothing Build: average Demeanor: less withdrawn, less guarded, more interactive, pleasant Eye Contact: Improved, he is able to establish and maintain eye contact now Activity: still a little slow but improved compared to previous days Behavior: cooperative Mood: less depressed Affect: more reactive, less depressed, less constricted Thought Process: linear, not circustantial, not tangential, but not very productive Thought Content (Delusions): none reported Thought Content (Other): none reported Thought Content (Aggressive): none reported Perception (Hallucinations): none reported Perception (Other): none reported Cognition (Impairment of): none reported Cognition(Intelligence Est.): average Oriented: Awake, Alert, Oriented times three Insight: Improving Judgment: Improving Psychosis: Denies Diagnoses 1. Unspecified psychotic disorder 2. marijuana use disorder 3. Opioid abuse versus Opioid use disorder 4. R/O substance induced psychotic disorde ASSESSMENT: The patient is slowly improving. His mood and affect are brighter, less constricted. He seems to be having a good response to Risperdal His lipid profile showed an LDL cholesterol level of 120 and an HDL of 34. Encouraged him to keep a healthy diet and to continue exercising, since he says he likes to bike. I believe his psychotic episode probably was the result of drugs. His AST was 102 on 02/21 which could be the result of lier injury by an unknown substance. He is less withdrawn, h doesn't seem to be responding to internal stimuli, he doesn't seem to b in danger to self or others. MANAGEMENT PLAN: Continue with the same treatment plan TIME SPENT: 20 minutes. Vital Signs Vital Signs Date Time Temp Pulse Resp B/P (MAP) Pulse Ox O2 Delivery O2 Flow Rate FiO2 02/23/21 08:01 Room Air 02/23/21 06:45 98.5 66 18 140/90 (107) 98 Laboratory Data 24H Labs Laboratory Tests 2 02/23/21 07:30: Triglycerides Level 93, Total Cholesterol 173, LDL Cholesterol 120H, Non-HDL Cholesterol (LDL + VLDL) 139, Total HDL Cholesterol 34L, Cholesterol/HDL Ratio 5.088H Current Medications Current Medications Medications (Trade) Dose Ordered Sig/Tomás Route PRN Reason Start Time Stop Time Status Last Admin Dose Admin Acetaminophen (Tylenol Tab) 650 mg Q6HP PRN PO HEADACHE or MILD DISCOMFORT 02/21/21 22:55 Al Hydrox/Mg Hydrox/Simethicone (Mylanta) 30 ml Q4HP PRN PO HEARTBURN/INDIGESTION 02/21/21 22:55 Magnesium Hydroxide (Milk Of Magnesia) 30 ml DAILYPRN PRN PO CONSTIPATION 02/21/21 22:55 Olanzapine (ZyPREXA ZYDIS) 5 mg Q6HP PRN PO AGITATION 02/21/21 22:55 Olanzapine (ZyPREXA) 5 mg QHS PO 02/21/21 21:00 02/22/21 13:04 DC Risperidone (RisperDAL) 2 mg BID PO 02/22/21 21:00 02/23/21 09:24 Trazodone HCl (Desyrel) 50 mg QHSP PRN PO INSOMNIA 02/21/21 22:55 Allergies Coded Allergies: No Known Allergies (Verified , 09/20/18) TAMIKO UGALDE MD Feb 23, 2021 13:56
[2021-02-23 16:55] VITALS: BP 162/88
[2021-02-24 05:50] VITALS: BP 135/84
[2021-02-24] MEDS: risperiDONE 2 MG TAB PO SCH ×2 (09:16→21:55)
--- NOTE | 2021-02-24 12:14 | MHIPNPDOC ---
[facility] Progress Note Progress Note DATE OF SERVICE: 02/24/21 HISTORY: 20 year old male,who was admitted for psychosis. He says he is sleeping well, his appetite is good, he says he feels improved, he says he remembers his heart was pounding and how he left his house and he says he told his mother to call someone because he felt very anxious and he needed to come to the Hospital to be checked. This is not what the original story says, regarding to the events that day, please refer to previous documents. He denies feeling depressed, denies feeling anxious, denies feeling paranoid, denies auditory and visual hallucinations. VITAL SIGNS: See below. NEW TEST RESULTS: See below CURRENT MEDICATIONS: See below. MENTAL STATUS EXAMINATION: General Appearance: well groomed, appears stated age, hospital scrubs/clothing Build: average Demeanor: less withdrawn, less guarded, more interactive, pleasant Eye Contact: Improved, maintains eye contact Activity: slow Behavior: cooperative Mood: less depressed Affect: constricted Thought Process: linear, not circumstantial, not tangential, slow Thought Content (Delusions): none reported Thought Content (Other): none reported Thought Content (Aggressive): none reported Perception (Hallucinations): none reported Perception (Other): none reported Cognition (Impairment of): none reported Cognition(Intelligence Est.): average Oriented: Awake, Alert, Oriented times three Insight: Improving Judgment: Improving Psychosis: Denies Diagnoses 1. Unspecified psychotic disorder 2. marijuana use disorder 3. Opioid abuse versus Opioid use disorder 4. R/O substance induced psychotic disorder ASSESSMENT: Patient reports that he was having an anxiety attack and having tachycardia and reports that he was psychotic and paranoid due to possible "laced cannabis." In today's meeting patient denies depression, psychotic symptoms of paranoia or delusional thinking, he is however very flat, constricted and observed to be quite guarded and superficial. His eye contact is maintained but is a stare most times. According to prior assessment, patient appears to be improving, treatment team can speak with parents to determine if patient is at his baseline. Patient to be discharged later in the week MANAGEMENT PLAN: Continue with the same treatment plan. Continue with medications and supportive therapies as ordered. TIME SPENT: 25 minutes. Vital Signs Vital Signs Date Time Temp Pulse Resp B/P (MAP) Pulse Ox O2 Delivery O2 Flow Rate FiO2 02/24/21 05:50 98.4 57 18 135/84 (101) 96 Room Air Current Medications Current Medications Medications (Trade) Dose Ordered Sig/Tomás Route PRN Reason Start Time Stop Time Status Last Admin Dose Admin Acetaminophen (Tylenol Tab) 650 mg Q6HP PRN PO HEADACHE or MILD DISCOMFORT 02/21/21 22:55 Al Hydrox/Mg Hydrox/Simethicone (Mylanta) 30 ml Q4HP PRN PO HEARTBURN/INDIGESTION 02/21/21 22:55 Magnesium Hydroxide (Milk Of Magnesia) 30 ml DAILYPRN PRN PO CONSTIPATION 02/21/21 22:55 Olanzapine (ZyPREXA ZYDIS) 5 mg Q6HP PRN PO AGITATION 02/21/21 22:55 Olanzapine (ZyPREXA) 5 mg QHS PO 02/21/21 21:00 02/22/21 13:04 DC Risperidone (RisperDAL) 2 mg BID PO 02/22/21 21:00 02/24/21 09:16 Trazodone HCl (Desyrel) 50 mg QHSP PRN PO INSOMNIA 02/21/21 22:55 Allergies Coded Allergies: No Known Allergies (Verified , 09/20/18) CINDY FLORES NP Feb 24, 2021 12:14
[2021-02-24 17:47] VITALS: BP 147/84
[2021-02-24] MEDS: traZODone 50 MG TAB PO PRN (21:55)
[2021-02-25 06:24] VITALS: BP 143/82
[2021-02-25] MEDS: risperiDONE 2 MG TAB PO SCH ×2 (09:13→21:55)
--- NOTE | 2021-02-25 15:41 | MHIPNPDOC ---
[facility] Progress Note Progress Note DATE OF SERVICE: 02/25/21 HISTORY: 20 year old male,who was admitted for psychosis. He says he is sleeping well, his appetite is good, he says he feels improved, he says he remembers his heart was pounding and how he left his house and he says he told his mother to call someone because he felt very anxious and he needed to come to the Hospital to be checked. This is not what the original story says, regarding to the events that day, please refer to previous documents. He denies feeling depressed, denies feeling anxious, denies feeling paranoid, denies auditory and visual hallucinations. VITAL SIGNS: See below. NEW TEST RESULTS: See below CURRENT MEDICATIONS: See below. MENTAL STATUS EXAMINATION: General Appearance: well groomed, appears stated age, hospital scrubs/clothing Build: average Demeanor: engaged in the interview, cooperative Eye Contact: Improved, maintains eye contact Activity: slow Behavior: cooperative Mood: reports "good" euthymic Affect: constricted Thought Process: linear, organized Thought Content (Delusions): none reported Thought Content (Other): none reported Thought Content (Aggressive): none reported Perception (Hallucinations): none reported Perception (Other): none reported Cognition (Impairment of): none reported Cognition(Intelligence Est.): average Oriented: Awake, Alert, Oriented times three Insight: Fair Judgment: Fair Psychosis: Denies Diagnoses 1. Unspecified psychotic disorder 2. marijuana use disorder 3. Opioid abuse versus Opioid use disorder 4. R/O substance induced psychotic disorder ASSESSMENT: Patient reports that he is at his baseline, denies depression, anxiety, AH/VH/TH. He is exhibiting minor strange affect which is a staring gaze. But this has not changed since he has been here, but has improved in that he maintains eye contact more. Patient states that he is interested in working in [employer] industry and while he currently is not working reports that he is in the [employer]. His insight and judgment has improved and he is not observed with any psychotic symptoms at this time. MANAGEMENT PLAN: Continue with the same treatment plan. Continue with medicatio ns and supportive therapies as ordered. Discharge tomorrow TIME SPENT: 25 minutes. Vital Signs Vital Signs Date Time Temp Pulse Resp B/P (MAP) Pulse Ox O2 Delivery O2 Flow Rate FiO2 02/25/21 06:24 97.5 116 14 143/82 (102) 97 Room Air Current Medications Current Medications Medications (Trade) Dose Ordered Sig/Tomás Route PRN Reason Start Time Stop Time Status Last Admin Dose Admin Acetaminophen (Tylenol Tab) 650 mg Q6HP PRN PO HEADACHE or MILD DISCOMFORT 02/21/21 22:55 Al Hydrox/Mg Hydrox/Simethicone (Mylanta) 30 ml Q4HP PRN PO HEARTBURN/INDIGESTION 02/21/21 22:55 Magnesium Hydroxide (Milk Of Magnesia) 30 ml DAILYPRN PRN PO CONSTIPATION 02/21/21 22:55 Olanzapine (ZyPREXA ZYDIS) 5 mg Q6HP PRN PO AGITATION 02/21/21 22:55 Olanzapine (ZyPREXA) 5 mg QHS PO 02/21/21 21:00 02/22/21 13:04 DC Risperidone (RisperDAL) 2 mg BID PO 02/22/21 21:00 02/25/21 09:13 Trazodone HCl (Desyrel) 50 mg QHSP PRN PO INSOMNIA 02/21/21 22:55 02/24/21 21:55 Allergies Coded Allergies: No Known Allergies (Verified , 09/20/18) CINDY FLORES [employer] Feb 25, 2021 14:26
[2021-02-25 16:35] VITALS: BP 138/92
[2021-02-25] MEDS: traZODone 50 MG TAB PO PRN (21:55)
[2021-02-26 06:00] VITALS: BP 146/90
[2021-02-26] MEDS: risperiDONE 2 MG TAB PO SCH (08:20)
[2021-02-26] MEDS ORDERED: RISP-9 PO ×2 (11:03→12:17)
--- NOTE | 2021-02-26 11:43 | MHDSPDOC ---
[facility] Discharge Summary Discharge Summary DATE OF ADMISSION: Feb 21, 2021 at 23:20 DATE OF DISCHARGE: February 26, 2021 at 1132 DISCHARGE DIAGNOSES: 1. Unspecified psychotic disorder 2. Cannabis use disorder 3. Opioid abuse versus Opioid use disorder 4. R/O substance induced psychotic disorder REASON FOR ADMISSION: Patient is a 20 -year-old Single, Unemployed, Domiciled, , male, who, according to ED documents: "Pt was brought to the ED by EMS after Mother contacted 911 stating pt. was highly paranoid and appeared psychotic. Pt allegedly smashed his television due to believing he was being monitored and demanded his family to turn off their cell phones. No SI or HI was ever expressed, but is clearly altered & uncooperative upon arrival. PER ED REPORT: Pt states, "do you see all those people out there?" Pt's MHE is limited due to his level of psychosis. He is unable to state what brought him into the ED and is highly paranoid, appears internally pre-occupied at this time. Pt is very delayed in his responses and believes [facility] Staff is "hacking into my body" with machines. He requested TW to leave his room after suspecting "you are in on it" and would not discuss further. Spoke to Mother (Anali Gibbons, ) who is extremely concerned regarding his safety. She reports pt has a long Hx of Depression and Anxiety, but not currently in outpt tx at this time. Mother notes pt does have a hx Marijuana abuse and heavily suspects it could have been laced? She reports pt's behavior has escalated over the past month. Pt was reportedly screaming at an outside light last night due to believing it was a camera. Once family convinced him to return to their residence, he began to "talking to voices that were not there" and demanded family to shut their phones off. Mother states pt believed "people were monitoring him" through everyone's cell phone and then smashed his television. He then left the house with his [employer] c[employer] system and through it off the bridge due to also believing it was "hacked." The patient was initially admitted to the medical floor because his HR was elevated, he was cleared from the Medical floor and readmitted to [facility] VITAL SIGNS: See below. CONSULTANTS INVOLVED: See Medical H + P by Hospitalist TREATMENT AND PROGRESS ON THE UNIT: Patient was admitted to the [facility] on a 9.39 legal status he was afforded the following treatment modalities: 1) Individual Therapy 2) Group Therapy 3) Medication Management 4) Milieu Therapy 5) Safe Environment HOSPITAL COURSE: Patient was admitted to [facility] on a 9.39 legal status. He was started on Risperidone for his psychosis. Pt found medications beneficial and tolerated them well. Mood, anxiety, and intrusive thoughts improved with treatment. Pt attended groups daily during stay. Pts symptoms improved with treatment. On day of discharge he denied depression, anxiety, insomnia, SI/HI, hallucinations, delusions. Pt was discharged home with follow-up with [facility]. Pt felt safe for discharge. DISCHARGE ASSESSMENT: In today's interview, patient is alert and oriented, pts dress is appropriate. Hygiene and grooming is well-kempt. Smiles on approach and is pleasant and engaged in the interview. Denies depression and anxiety. Denies suicidal and homicidal ideation, planning or intent. Denies and is not observed with kody, psychotic symptoms of delusions, bizarre thinking, obsessions, paranoia, ruminations illogical thoughts, flight of ideas or having poor insight and judgement. Patient has normal mentation, declines further hospitalization on a voluntary status and meets criteria for discharge today. He was warned to abstain from drugs and alcohol. Patient was prescribed Risperdal 2 mg twice daily, and he has tolerated medications well and is no longer psychotic. According to the Pharmacy, this medication is not approved for the diagnosis. Patient may be stable without the medication if the Pharmacy cannot get it approved or we will send it to a pharmacy with a lower ferrell. MENTAL STATUS EXAMINATION ON DISCHARGE: Patient is a 20 -year-old Single, Unemployed, Domiciled, , male, who was brought to the ED by EMS for being highly paranoid and appeared psychotic Speech: Is fluid, conversant, normal rate, tone and volume Language skills are intact Thought processes including: linear and goal oriented Thought content: denies depression and anxiety. Denies suicidal/homicidal ideation, planning or intent. Abstract reasoning, and computation: fair Description of associations: denies, none observed Description of abnormal or psychotic thoughts: denies, none observed. Judgment: fair Insight: fair Orientation: alert and oriented to person, place, time and situation Recent and remote memory: intact Attention span and concentration: good Language: expansive Fund of knowledge: average Mood: Euthymic Mood Affect: reactive MEDICATIONS ON DISCHARGE: See Medication Reconciliation PLAN/FOLLOWUP ARRANGEMENTS: Patient is returning home and following up [facility] The amount of time spent in the coordination of care for this patient was approximately 25 minutes. ETOH/Disorder Med Rx ETOH/DRUG DISORDER RX: N/A Vital Signs/I&Os Vital Signs Date Time Temp Pulse Resp B/P (MAP) Pulse Ox O2 Delivery O2 Flow Rate FiO2 02/26/21 06:00 98.3 88 14 146/90 (108) 96 Room Air Medications Scheduled Risperidone (Risperidone) 2 Mg Tablet, 2 MG PO BID for Antipsychotic, #14 Allergies Coded Allergies: No Known Allergies (Verified , 09/20/18) CINDY FLORES NP Feb 26, 2021 11:34
== END 2021-02-26 11:40 | disposition home or self-care (01) | DRG 751 ==
LOC: M PSY 23:20
PROVIDERS: ADMIT Psychiatry & Neurology Psychiatry; ATTEND Psychiatry & Neurology Psychiatry
DX: F29 Unspecified psychosis not due to a substance or known physiological condition (principal); F11.10 Opioid abuse, uncomplicated; F12.159 Cannabis abuse with psychotic disorder, unspecified

== ENCOUNTER 2022-05-08 21:54 | Emergency (ER) | payer MEDICAID, OTHER ==
[~2022-05-08] VITALS: Ht 177.8 cm; Wt 72.7 kg
[~2022-05-08 21:54] MED LIST changes: -OLANZapine 5 MG TAB PO SCH; +RISP-9 PO
[2022-05-09] MEDS ORDERED: hydrOXYzine 50 MG TAB PO ONE (00:40)
[2022-05-09] MEDS ORDERED: TRIA1CR80 TOP (02:15)
[2022-05-09] MEDS ORDERED: HYDR1CAP25 PO (02:15)
[2022-05-09 02:24] VITALS: BP 133/74
== END 2022-05-09 02:26 | disposition home or self-care (01) ==
LOC: M ED 21:54
DX: F41.9 Anxiety disorder, unspecified (principal); L50.9 Urticaria, unspecified; J45.909 Unspecified asthma, uncomplicated; M54.9 Dorsalgia, unspecified

== ENCOUNTER 2022-06-05 20:08 | Emergency (ER) | payer OTHER ==
[~2022-06-05] VITALS: Ht 177.8 cm; Wt 73.6 kg
[~2022-06-05 20:08] MED LIST changes: +HYDR1CAP25 PO; +TRIA1CR80 TOP
[2022-06-05 20:09] VITALS: BP 147/67
== END 2022-06-06 01:09 | disposition left against medical advice (07) ==
LOC: M ED 20:08
DX: Z53.21 Procedure and treatment not carried out due to patient leaving prior to being seen by health care provider (principal)

== ENCOUNTER 2022-08-27 13:46 | Emergency (ER) | payer OTHER ==
[~2022-08-27] VITALS: Ht 177.8 cm; Wt 160.0 kg
[2022-08-27 15:05] LABS: BASO % 0.1 % (0.0-1.0); EOS # 0.1 10^3/uL (0.0-0.5); EOS % 0.7 % (0.0-3.0); HEMATOCRIT 42.7 % (42.0-52.0); LYMPH # 1.1 10^3/uL (1.5-5.0); LYMPH % 15.8 % (24.0-44.0); MEAN CORPUSCULAR HEMOGLOBIN 29.5 pg (27.0-33.0); MEAN CORPUSCULAR HGB CONC 32.8 g/dl (32.0-36.5); MEAN CORPUSCULAR VOLUME 89.9 fl (80.0-96.0); MONO # 0.9 10^3/uL (0.0-0.8); MONO % 12.7 % (2.0-8.0); NEUTROPHILS # 4.8 10^3/uL (1.5-8.5); NEUTROPHILS % 70.6 % (36.0-66.0); PLATELET COUNT, AUTOMATED 213 10^3/uL (150-450); RED BLOOD COUNT 4.75 10^6/uL (4.30-6.10); WHITE BLOOD COUNT 6.8 10^3/uL (4.0-10.0)
[2022-08-27 15:14] LABS: ERYTHROCYTE SEDIMENTATION RATE 28 mm/hr (0-15)
[2022-08-27 15:32] LABS: ALBUMIN 3.7 G/DL (3.2-5.2); ALKALINE PHOSPHATASE 80 U/L (46-116); ALT/SGPT 32 U/L (7.0-40); AST/SGOT 23 U/L (<34); BILIRUBIN,DIRECT 0.2 MG/DL (<0.4); BILIRUBIN,TOTAL 0.4 MG/DL (0.3-1.2); BLOOD UREA NITROGEN 12 MG/DL (9-23); CALCIUM LEVEL 8.7 MG/DL (8.5-10.1); CARBON DIOXIDE LEVEL 32 MMOL/L (20-31); CHLORIDE LEVEL 103 MMOL/L (98-107); GLOMERULAR FILTRATION RATE > 60.0 (>60); GLUCOSE, FASTING 60 MG/DL (60-100); POTASSIUM SERUM 4.4 MMOL/L (3.5-5.1); SODIUM LEVEL 139 MMOL/L (136-145); TOTAL PROTEIN 6.8 G/DL (5.7-8.2)
[2022-08-27] MEDS ORDERED: KETOROLAC TROMETHAMINE 10 MG TAB PO ONE (16:25)
[2022-08-27] MEDS ORDERED: DOXYCYCLINE HYCLATE 100MG TABLET PO ONE (16:25)
[2022-08-27 16:39] LABS: RSV AMPLIFICATION NEGATIVE (NEGATIVE)
[2022-08-27] MEDS ORDERED: DOXY-443 PO (17:01)
[2022-08-27] MEDS ORDERED: KETO10TAB PO (17:01)
[2022-08-27 17:24] VITALS: BP 106/70
== END 2022-08-27 17:31 | disposition home or self-care (01) ==
LOC: M ED 13:46
DX: L03.115 Cellulitis of right lower limb (principal); W20.8XXA Other cause of strike by thrown, projected or falling object, initial encounter; Y92.009 Unspecified place in unspecified non-institutional (private) residence as the place of occurrence of the external cause; M54.9 Dorsalgia, unspecified; K21.9 Gastro-esophageal reflux disease without esophagitis; J45.909 Unspecified asthma, uncomplicated; F41.9 Anxiety disorder, unspecified; F11.10 Opioid abuse, uncomplicated

== ENCOUNTER 2022-09-23 00:52 | Emergency (ER) | payer OTHER ==
[~2022-09-23 00:52] MED LIST changes: +DOXY-443 PO
== END 2022-09-23 03:02 | disposition left against medical advice (07) ==
LOC: M ED 00:52
DX: Z53.21 Procedure and treatment not carried out due to patient leaving prior to being seen by health care provider (principal)

== ENCOUNTER 2022-11-24 20:18 | Emergency (ER) | payer OTHER ==
[~2022-11-24] VITALS: Ht 177.8 cm; Wt 74.5 kg
[2022-11-24 21:30] VITALS: BP 139/80
== END 2022-11-24 21:50 | disposition home or self-care (01) ==
LOC: EDBD 20:18 → M ED 20:18
DX: F11.10 Opioid abuse, uncomplicated (principal)

== ENCOUNTER 2023-03-09 21:01 | Inpatient (IN) | payer MEDICAID, OTHER ==
[~2023-03-09] VITALS: Ht 177.8 cm; Wt 75.0 kg
[2023-03-09 22:32] LABS: HEMATOCRIT 40.7 % (42.0-52.0); HEMOGLOBIN 13.5 g/dl (13.5-17.5); MEAN CORPUSCULAR HEMOGLOBIN 27.9 pg (27.0-33.0); MEAN CORPUSCULAR HGB CONC 33.2 g/dl (32.0-36.5); MEAN CORPUSCULAR VOLUME 84.1 fl (80.0-96.0); PLATELET COUNT, AUTOMATED 343 10^3/uL (150-450); RED BLOOD COUNT 4.84 10^6/uL (4.30-6.10); WHITE BLOOD COUNT 7.5 10^3/uL (4.0-10.0)
[2023-03-09 23:03] LABS: ETHYL ALCOHOL (ETHANOL) < 0.003 % (0.000-0.010)
[2023-03-09 23:04] LABS: ACETAMINOPHEN LEVEL < 2.0 UG/ML (10.0-20.0); ALBUMIN 4.3 G/DL (3.2-5.2); ALKALINE PHOSPHATASE 112 U/L (46-116); ALT/SGPT 20 U/L (7.0-40); AST/SGOT 16 U/L (<34); BILIRUBIN,DIRECT 0.2 MG/DL (<0.4); BILIRUBIN,TOTAL 0.4 MG/DL (0.3-1.2); BLOOD UREA NITROGEN 18 MG/DL (9-23); CALCIUM LEVEL 9.8 MG/DL (8.5-10.1); CARBON DIOXIDE LEVEL 27 MMOL/L (20-31); CHLORIDE LEVEL 104 MMOL/L (98-107); CREATININE FOR GFR 0.82 MG/DL (0.70-1.30); GLOMERULAR FILTRATION RATE > 60.0 (>60); GLUCOSE, FASTING 93 MG/DL (60-100); POTASSIUM SERUM 4.2 MMOL/L (3.5-5.1); SODIUM LEVEL 139 MMOL/L (136-145); TOTAL PROTEIN 7.5 G/DL (5.7-8.2)
[2023-03-09] MEDS ORDERED: HOME MED LIST COMPLETE! XX SCH (23:05)
[2023-03-09 23:13] LABS: BARBITURATES URINE NEGATIVE (NEGATIVE); COCAINE METABOLITE URINE NEGATIVE (NEGATIVE); METHADONE URINE NEGATIVE (NEGATIVE); PHENCYCLIDINE URINE NEGATIVE (NEGATIVE)
[2023-03-09 23:14] LABS: CANNABINOIDS URINE NEGATIVE (NEGATIVE)
[2023-03-09 23:15] LABS: SALICYLATE LEVEL < 3.0 MG/DL (<30)
[2023-03-09 23:15] LABS: AMPHETAMINES LEVEL URINE POSITIVE (NEGATIVE); BENZODIAZEPINES URINE POSITIVE (NEGATIVE); OPIATES URINE POSITIVE (NEGATIVE)
[2023-03-10] MEDS ORDERED: ACETAMINOPHEN TAB 650MG DOSE (2X325MG) PO PRN (14:15)
[2023-03-10] MEDS ORDERED: diphenhydrAMINE 25MG CAP PO PRN (14:15)
[2023-03-10] MEDS ORDERED: IBUPROFEN 400MG TAB PO PRN (14:15)
[2023-03-10] MEDS ORDERED: MAALOX 30 ML SUSP *UDC PO PRN (14:15)
[2023-03-10] MEDS ORDERED: MOM 30ML SUSPENSION UDC PO PRN (14:15)
[2023-03-10] MEDS ORDERED: OLANZapine ORAL DISINTEGRATING TAB 5MG PO PRN (14:15)
[2023-03-10] MEDS ORDERED: LORazepam 1 MG TAB PO ONE (17:05)
[2023-03-10 17:35] VITALS: BP 140/78; TEMP 96.8; O2SAT 99
[2023-03-11 06:20] VITALS: BP 135/80; TEMP 98.3; O2SAT 100
[2023-03-11] MEDS ORDERED: IBUPROFEN 800 MG TAB PO ONE (09:25)
[2023-03-11] MEDS ORDERED: LORazepam 1 MG TAB PO ONE (09:25)
[2023-03-11] MEDS: OLANZapine 5 MG TAB PO SCH ×2 (15:00→21:38)
[2023-03-11 18:00] VITALS: BP 132/75; TEMP 98.1
[2023-03-11] MEDS ORDERED: BACLOFEN 5MG PER 1/2 TABLET PO PRN (20:00)
[2023-03-11] MEDS ORDERED: LOPERAMIDE 2 MG CAPLET PO PRN (20:00)
[2023-03-11] MEDS: cloNIDine 0.1MG TABLET PO SCH (21:38)
[2023-03-11] MEDS: traZODone 50 MG TAB PO PRN (21:38)
[2023-03-12] VITALS (7 sets, daily range): BP systolic 116–156; BP diastolic 67–97; TEMP 98.6–98.9; O2SAT 95–99
[2023-03-12] MEDS: OLANZapine 5 MG TAB PO SCH ×2 (08:18→21:45)
[2023-03-12] MEDS: cloNIDine 0.1MG TABLET PO SCH ×3 (08:18→21:44)
[2023-03-12] MEDS ORDERED: LORazepam 2 MG TAB PO PRN (09:20)
[2023-03-13 00:16] VITALS: BP 137/94
[2023-03-13 06:27] VITALS: BP 137/80; TEMP 99.1; O2SAT 95
[2023-03-13 08:49] VITALS: BP 138/80
[2023-03-13] MEDS: cloNIDine 0.1MG TABLET PO SCH ×3 (09:00→20:59)
[2023-03-13] MEDS: OLANZapine 5 MG TAB PO SCH ×2 (09:00→20:58)
[2023-03-13] MEDS: ONDANSETRON 4MG ORAL DISINTEGRATING TAB PO PRN (09:49)
[2023-03-13 16:00] VITALS: BP 137/90
[2023-03-13 17:58] VITALS: BP 137/90; TEMP 98.6; O2SAT 98
[2023-03-13 20:56] VITALS: BP 128/87
[2023-03-13] MEDS: traZODone 50 MG TAB PO PRN (20:58)
[2023-03-14 00:15] VITALS: BP 114/75
[2023-03-14 06:33] VITALS: BP 150/90; TEMP 98.2; O2SAT 98
[2023-03-14 07:01] VITALS: BP 150/90
[2023-03-14] MEDS: OLANZapine 5 MG TAB PO SCH ×2 (08:13→20:19)
[2023-03-14] MEDS: ONDANSETRON 4MG ORAL DISINTEGRATING TAB PO PRN ×2 (08:14→17:04)
[2023-03-14] MEDS: cloNIDine 0.1MG TABLET PO SCH ×3 (08:14→20:20)
[2023-03-14 12:00] VITALS: BP 155/85
[2023-03-14 16:40] VITALS: BP 124/72; TEMP 97.8; O2SAT 98
[2023-03-14] MEDS ORDERED: OLAN1TAB16 PO (20:01)
[2023-03-14] MEDS: traZODone 50 MG TAB PO PRN (20:20)
[2023-03-15 06:12] VITALS: BP 127/76; TEMP 98; O2SAT 99
[2023-03-15 08:26] VITALS: BP 134/84
[2023-03-15 08:27] VITALS: BP 134/84
[2023-03-15] MEDS: cloNIDine 0.1MG TABLET PO SCH (08:27)
[2023-03-15] MEDS: OLANZapine 5 MG TAB PO SCH (08:27)
== END 2023-03-15 13:08 | disposition home or self-care (01) | DRG 751 ==
LOC: M ED 21:01 → M ED INP 03-10 14:14 → M PSY 03-10 17:27
PROVIDERS: ADMIT Student in an Organized Health Care Education/Training Program; ATTEND Psychiatry & Neurology Psychiatry
DX: F29 Unspecified psychosis not due to a substance or known physiological condition (principal); F11.13 Opioid abuse with withdrawal; F11.159 Opioid abuse with opioid-induced psychotic disorder, unspecified; Z56.0 Unemployment, unspecified

== ENCOUNTER 2024-01-16 15:38 | Emergency (ER) | payer MEDICAID, SELFPAY ==
[~2024-01-16] VITALS: Ht 177.8 cm; Wt 71.8 kg
[~2024-01-16 15:38] MED LIST changes: +DOXY-323 PO; -DOXY-443 PO; +OLAN1TAB16 PO; +RISP-106 PO; -RISP-9 PO
[2024-01-16] MEDS ORDERED: IBUP200T46 PO (15:47)
[2024-01-16] MEDS ORDERED: ISOVUE-370 76% 100ML VIAL As Ordered ONE (15:59)
[2024-01-16 19:37] VITALS: BP 147/85; TEMP 98.3; O2SAT 95
[2024-01-16] MEDS ORDERED: ONDA-282 PO (19:50)
[2024-01-16] MEDS ORDERED: EXCETAB32 PO (19:50)
[2024-01-16] MEDS: ONDANSETRON 4MG ORAL DISINTEGRATING TAB PO ONE (20:01)
[2024-01-16] MEDS: EXCEDRIN MIGRAINE TABLET PO STA (20:10)
== END 2024-01-16 20:30 | disposition home or self-care (01) ==
LOC: M ED 15:38
DX: S06.0X9A Concussion with loss of consciousness of unspecified duration, initial encounter (principal); S00.83XA Contusion of other part of head, initial encounter; W01.198A Fall on same level from slipping, tripping and stumbling with subsequent striking against other object, initial encounter; Y92.002 Bathroom of unspecified non-institutional (private) residence as the place of occurrence of the external cause; Y93.9 Activity, unspecified; Y99.9 Unspecified external cause status; K21.9 Gastro-esophageal reflux disease without esophagitis

== ENCOUNTER 2024-03-24 19:10 | Emergency (ER) | payer SELFPAY ==
[~2024-03-24 19:10] MED LIST changes: +EXCETAB32 PO; +IBUP200T46 PO; +ONDA-282 PO
[2024-03-24 19:47] LABS: HEMATOCRIT 46.1 % (42.0-52.0); MEAN CORPUSCULAR HEMOGLOBIN 30.2 pg (27.0-33.0); MEAN CORPUSCULAR HGB CONC 32.5 g/dl (32.0-36.5); MEAN CORPUSCULAR VOLUME 92.8 fl (80.0-96.0); PLATELET COUNT, AUTOMATED 213 10^3/uL (150-450); RED BLOOD COUNT 4.97 10^6/uL (4.30-6.10); WHITE BLOOD COUNT 16.4 10^3/uL (4.0-10.0)
[2024-03-24 20:06] LABS: ETHYL ALCOHOL (ETHANOL) < 0.003 % (0.000-0.010)
[2024-03-24 20:08] LABS: SALICYLATE LEVEL < 3.0 MG/DL (<30)
[2024-03-24 20:11] LABS: ALBUMIN 4.1 G/DL (3.2-5.2); ALKALINE PHOSPHATASE 105 U/L (46-116); ALT/SGPT 179 U/L (7.0-40); AST/SGOT 133 U/L (<34); BILIRUBIN,DIRECT 0.1 MG/DL (<0.4); BILIRUBIN,TOTAL 0.2 MG/DL (0.3-1.2); BLOOD UREA NITROGEN 13 MG/DL (9-23); CALCIUM LEVEL 8.7 MG/DL (8.5-10.1); CARBON DIOXIDE LEVEL 23 MMOL/L (20-31); CHLORIDE LEVEL 102 MMOL/L (98-107); CREATININE FOR GFR 1.12 MG/DL (0.70-1.30); GLOMERULAR FILTRATION RATE > 60.0 (>60); GLUCOSE, FASTING 468 MG/DL (60-100); POTASSIUM SERUM 6.2 MMOL/L (3.5-5.1); SODIUM LEVEL 133 MMOL/L (136-145); TOTAL PROTEIN 6.8 G/DL (5.7-8.2)
[2024-03-24] MEDS: NS 1,000 ML IV ONE (20:27)
[2024-03-24] MEDS: HumuLIN R (REGULAR) INSULIN (NovoLIN R) **100U/ML** PER UNIT IV ONE (20:27)
[2024-03-24 20:34] LABS: LIPASE 39 U/L (12-53)
[2024-03-24 20:45] VITALS: BP 124/69
[2024-03-24 20:55] VITALS: O2SAT 97
== END 2024-03-24 23:37 | disposition home or self-care (01) ==
LOC: M ED 19:10
DX: T40.411A Poisoning by fentanyl or fentanyl analogs, accidental (unintentional), initial encounter (principal); F11.10 Opioid abuse, uncomplicated; F17.200 Nicotine dependence, unspecified, uncomplicated
CPT/HCPCS: 36415; 80047; 80048; 80076; 80143; 82077; 83036; 83690; 85027; 93005; 96361; 96374; 99284; J1815